=== PATIENT | female | born 1990 | race Caucasian/White ===

== ENCOUNTER 2020-07-18 18:35 | Emergency (ER) | payer BC, SELFPAY ==
[2020-07-18 19:33] VITALS: BP 141/73; PULSE 97; RESP 14; TEMP 37.1; O2SAT 98; BMI 38.4
--- NOTE | 2020-07-18 19:36 | HMH.EDUTC ---
[facility] [place] Clinical Impression: COVID-19 virus RNA test result unknown Disposition: Home, Self-Care Condition on Discharge: Good Instructions: Preventing the Spread of Coronavirus Discharge Instructions Additional Instructions: isolate until test known to be neg Referrals: Shira Gaviria [Primary Care Provider] - Forms: Work/School Release Time of Disposition: 19:52 Medical Decision Making - Ankur Inquiry Pt receiving controlled substance: No Vital Signs: 07/18/20 19:33 Temperature 98.7 F Temperature Source Oral Pulse Rate [Right Brachial] 97 H Respiratory Rate 14 Blood Pressure [Right Arm] 141/73 H Blood Pressure Mean [Right Arm] 95 Blood Pressure Source [Right Arm] Automatic Cuff Blood Pressure Position [Right Arm] Sitting 02 Sat by Pulse Oximetry 98 Oxygen Delivery Method Room Air [facility] [place] HPI - General Chief complaint: Urgent Treatment Center Stated complaint: COVID Test Time Seen by Provider: 07/18/20 19:36 Mode of Arrival: Ambulatory Source of Information: Patient Limitations: No Limitations Description of Symptoms (Recalled from Triage Doc. by RN): PATIENT REQUESTING COVID TEST HEENT Symptoms (Recalled from RN notes): No Resp Symptoms (Recalled from RN notes): No Skin Symptoms (Recalled from RN notes): No MS Symptoms (Recalled from RN notes): No Functional Status (Recalled from RN notes): WNL - History of Present Illness Provider Complaint: 30 yr old female presents for covid testing. pt denies symptoms but was tested today so her work wanted her tested - Related Data Previous Rx's Medication Instructions Recorded Benzonatate [Tessalon Perle 100mg 100 mg PO TID #30 cap 04/07/19 Cap] Oseltamivir Phosphate [Tamiflu 75 mg PO BID #10 cap 04/07/19 75mg Capsule] predniSONE [Prednisone 20mg 20 mg PO BID #10 tab 04/07/19 Tab] Allergies Allergy/AdvReac Type Severity Reaction Status Date / Time No Known Allergies Allergy Verified 04/07/19 12:38 - Worker's Comp Is this a Worker's Comp case?: No [facility] [facility] History - Hepatitis A Screen Drug use history?: No High risk sexual behaviors?: No History of sexually transmitted infection?: No Currently employed?: No Childcare worker?: No Do you have indoor plumbing?: Yes Do you have electricity?: Yes Attestation statement:: This patient has been screened for Hepatitis A risk factors. I have reviewed the patient's past medical history: Yes Medical History: Reports:: Cancer (thyroid) Denies:: Diabetes Mellitus Type 1 - Social History Alcohol Intake: never Occupational Status: other ROS Obtained: Yes Systems reviewed as appropriate & no additional complaints - Constitutional Constitutional: Reports system reviewed and no additional complaints, except as docu - Eyes Eyes: Reports system reviewed and no additional complaints, except as docu - ENT Ears, Nose, Mouth, and Throat: Reports system reviewed and no additional complaints, except as docu - Cardiovascular Cardiovascular: Reports system reviewed and no additional complaints, except as docu - Respiratory Respiratory: Yes system reviewed and no additional complaints, except as docu - Gastrointestinal Gastrointestingal: Reports: system reviewed and no additional complaints, except as docu - Genitourinary Female Genitourinary: Reports system reviewed and no additional complaints, except as docu - Musculoskeletal Musculoskeletal: Reports system reviewed and no additional complaints, except as docu - Integumentary/Breasts Skin/Breast: Reports system reviewed and no additional complaints, except as docu, Denies new lesions - Neurologic Neurologic: Reports system reviewed and no additional complaints, except as docu - Endocrine Endocrine: Reports system reviewed and no additional complaints, except as docu - Hematologic/Lymphatic Henatologic/Lymphatic: Reports system reviewed and no additional complaints, except as docu - Allergic/Immunol
[2020-07-18 19:58] VITALS: BP 141/73; PULSE 97; RESP 14; TEMP 37.1; O2SAT 98
[2020-07-20 12:52] LABS: Covid-19 Nasal PCR Sendout Lex Not Detected
== END 2020-07-18 20:00 | disposition home or self-care (01) ==
PROVIDERS: Emergency Provider Nurse Practitioner Family; PCP Pediatrics
DX: Z20.828 Contact with and (suspected) exposure to other viral communicable diseases (principal); Z85.850 Personal history of malignant neoplasm of thyroid
CPT/HCPCS: 99201; U0004

== ENCOUNTER 2021-10-23 01:53 | Emergency (ER) | payer BC, OTHER, SELFPAY ==
[2021-10-23 01:54] VITALS: BP 138/97; PULSE 107; RESP 18; TEMP 36.6; O2SAT 97; BMI 36.6
[2021-10-23 03:23] VITALS: BP 106/89; PULSE 87
[2021-10-23 03:23] LABS: Basophils # 0.1 K/mm3 (0-0.2); Basophils % 1.7 % (0.1-2.0); Eosinophils # 0.1 K/mm3 (0.0-0.4); Eosinophils % 1.4 % (0.1-12.0); Hematocrit 44.5 % (37.0-47.0); Lymphocytes # 1.4 K/mm3 (0.7-4.5); Lymphocytes % 23.8 % (10-50); Mean Corpuscular HGB Conc 33.6 g/dL (31.8-35.4); Mean Corpuscular Hemoglobin 32.7 pg (27.0-31.2); Mean Corpuscular Volume 97.2 fl (81-99); Mean Platelet Volume 8.2 fl (7.4-10.4); Monocytes # 0.4 K/mm3 (0.1-1.0); Neutrophils # 3.9 K/mm3 (1.8-7.8); Platelet Count 232 K/mm3 (142-424); Red Blood Count 4.58 M/mm3 (4.20-5.40); White Blood Count 5.8 K/mm3 (4.8-10.8)
--- NOTE | 2021-10-23 03:24 | PC.NURSE ---
PT AWARE OF NEED FOR STOOL SAMPLE. BLANKET PROVIDED. EXPECTED WAIT TIMES EXPLAINED TO PATIENT AND PATIENT VERBALIZED UNDERSTANDING.
[2021-10-23 03:29] LABS: Chloride 100 mmol/L (98-107); Sodium 136 mmol/L (136-145)
[2021-10-23 03:30] VITALS: BP 116/74; PULSE 78
[2021-10-23 03:31] LABS: Alanine Aminotransferase 62 U/L (12-78); Aspartate Amino Transferase 43 U/L (14-36); Blood Urea Nitrogen 6 mg/dl (7-17); Creatinine Clearance Estimated 146 mL/min (50-200); Estimated Glomerular Filt Rate 84 ml/min (>60); GFR (African American) 101 ML/MIN (>60); Potassium 2.9 mmoL/L (3.5-5.1)
[2021-10-23 03:32] LABS: Albumin Level 4.8 g/dl (3.5-5.0); Albumin/Globulin Ratio 1.5 (1.1-1.8); Alkaline Phosphatase 66 U/L (38-126); Anion Gap 15.9 mEq/L (5-15); Bilirubin,Total 0.6 mg/dl (0.2-1.3); Carbon Dioxide 23 mmol/L (22.0-30.0); Globulin 3.3 g/dL (1.3-3.2); Glucose 94 mg/dl (74-100); Lipase 112 U/L (23-300); Total Protein,Serum 8.1 g/dl (6.3-8.2)
[2021-10-23 04:05] VITALS: BP 128/81; PULSE 80
[2021-10-23 04:30] VITALS: BP 119/71; PULSE 78; O2SAT 100
--- NOTE | 2021-10-23 04:54 | PC.NURSE ---
PT AWARE OF EXPECTED WAIT TIMES. NO ACUTE DISTRESS NOTED.
--- NOTE | 2021-10-23 05:22 | HMH.EDABDPAI ---
ED Disposition Clinical Impression: Hypocalcemia, Viral gastroenteritis, Hypokalemia Disposition: Home, Self-Care Condition on Discharge: Good Instructions: Viral Gastroenteritis, Hypocalcemia Additional Instructions: Please follow up with your primary care physician in 2-3 days for further management. Please obtain repeat calcium and potassium labs in the next week. Please take the zofran as prescribed. Please drink plenty of water and eat 3 balanced meals. Please return if you are unable to tolerate po intake, vomiting despite medical management or any other concerns. Prescriptions: Ondansetron [Zofran 4mg ODT] 4 mg PO TIDP PRN #30 tab PRN Reason: Nausea Transmission Status: Received by [id number] Referrals: Shira Gaviria [Primary Care Provider] - - Critical Care Critical Care Time: No Attestation: On 10/23/21, the high probability of a clinically significant, sudden or life threatening deterioration of the following system(s) required my full and direct attention, intervention and personal management. The time I documented below is in addition to time spent performing reported procedures but includes the following listed in this critical care notation. Medical Decision Making - Medical Records Medical records reviewed: Yes: I reviewed the patient's medical records. - Ankur Inquiry Pt receiving controlled substance: No Vital Signs: 10/23/21 01:54 10/23/21 03:23 10/23/21 03:30 Temperature 97.9 F Temperature Source Oral Pulse Rate 87 78 Pulse Rate [Left Radial] 107 H Respiratory Rate 18 Blood Pressure 106/89 L 116/74 Blood Pressure [Right Arm] 138/97 H Blood Pressure Mean 94 86 Blood Pressure Mean [Right Arm] 110 Blood Pressure Source [Right Arm] Automatic Cuff Blood Pressure Position [Right Arm] Sitting 02 Sat by Pulse Oximetry 97 Oxygen Delivery Method Room Air 10/23/21 04:05 10/23/21 04:30 10/23/21 06:04 Temperature 98.1 F Temperature Source Pulse Rate 80 78 78 Pulse Rate [Left Radial] Respiratory Rate 18 Blood Pressure 128/81 119/71 121/73 Blood Pressure [Right Arm] Blood Pressure Mean 89 83 Blood Pressure Mean [Right Arm] Blood Pressure Source [Right Arm] Blood Pressure Position [Right Arm] 02 Sat by Pulse Oximetry 100 Oxygen Delivery Method Room Air - Lab Data Lab results reviewed: Yes: I reviewed the patient's lab results. Lab Results 10/23/21 03:13: WBC 5.8, RBC 4.58, Hgb 15.0, Hct 44.5, MCV 97.2, MCH 32.7 H, MCHC 33.6, RDW 14.0, Plt Count 232, MPV 8.2, Neut % (Auto) 67.0, Lymph % (Auto) 23.8, Crawford % (Auto) 6.0, Eos % (Auto) 1.4, Baso % (Auto) 1.7, Neut # (Auto) 3.9, Lymph # (Auto) 1.4, Crawford # (Auto) 0.4, Eos # (Auto) 0.1, Baso # (Auto) 0.1 10/23/21 03:13: Sodium 136, Potassium 2.9 L*, Chloride 100, Carbon Dioxide 23, Anion Gap 15.9 H, BUN 6 L, Creatinine 0.80, Estimated Creat Clear 146, Estimated GFR 84, Est GFR ( Amer) 101, Glucose 94, Calcium 7.0 L, Total Bilirubin 0.6, AST 43 H, ALT 62, Alkaline Phosphatase 66, Total Protein 8.1, Albumin 4.8, Globulin 3.3 H, Albumin/Globulin Ratio 1.5, Lipase 112 Result diagrams: 10/23/21 03:13 10/23/21 03:13 Orders (Tests/Meds): ED MEDICATIONS Discontinued Medications Generic Name Dose Route Start Last Admin Trade Name Freq PRN Reason Stop Dose Admin Lactated Ringer's 1,000 mls @ 999 mls/hr 10/23/21 03:15 10/23/21 03:20 Lactated Ringer's 1000 Ml Bag IV 10/23/21 04:15 999 mls/hr .Q1H1M RAVEN Administration Calcium Gluconate 1,000 mg/ 35 mls @ 100 mls/hr 10/23/21 04:12 10/23/21 04:43 Sodium Chloride IV 10/23/21 04:32 100 mls/hr ONCE ONE Administration Ondansetron HCl 4 mg 10/23/21 03:09 10/23/21 03:20 Ondansetron 4mg/2ml Vial IV 10/23/21 03:10 4 mg ONCE ONE Administration Potassium Chloride 40 meq 10/23/21 03:33 10/23/21 03:38 Potassium Chloride 20meq Tab PO 10/23/21 03:34 40 meq ONCE ONE Administration Med
[2021-10-23 06:04] VITALS: BP 121/73; PULSE 78; RESP 18; TEMP 36.7; O2SAT 98
== END 2021-10-23 06:07 | disposition home or self-care (01) ==
PROVIDERS: Emergency Provider Student in an Organized Health Care Education/Training Program; PCP Pediatrics
DX: E83.51 Hypocalcemia (principal); K52.9 Noninfective gastroenteritis and colitis, unspecified; E87.6 Hypokalemia; Z85.850 Personal history of malignant neoplasm of thyroid
CPT/HCPCS: 80053; 83690; 85025; 96365; 96366; 96375; 99284; J2405

== ENCOUNTER 2022-03-23 21:04 | Emergency (ER) | payer BC, OTHER, SELFPAY ==
[2022-03-23 21:06] VITALS: BP 148/83; PULSE 115; RESP 16; TEMP 36.9; O2SAT 98; BMI 38.0
--- NOTE | 2022-03-23 21:52 | PC.NURSE ---
Rechecked pt condition. Pt had no complaints at this time. Advised her ride was on the way.
[2022-03-23 22:01] VITALS: BP 148/83; PULSE 104; O2SAT 97
[2022-03-23 22:33] LABS: Basophils # 0.1 K/mm3 (0-0.2); Eosinophils # 0.1 K/mm3 (0.0-0.4); Eosinophils % 1.5 % (0.1-12.0); Hematocrit 41.6 % (37.0-47.0); Hemoglobin 13.4 g/dL (12.2-16.2); Lymphocytes # 2.2 K/mm3 (0.7-4.5); Lymphocytes % 23.8 % (10-50); Mean Corpuscular HGB Conc 32.1 g/dL (31.8-35.4); Mean Corpuscular Hemoglobin 31.8 pg (27.0-31.2); Mean Corpuscular Volume 99.1 fl (81-99); Mean Platelet Volume 8.1 fl (7.4-10.4); Monocytes # 0.5 K/mm3 (0.1-1.0); Monocytes % 5.1 % (1.7-9.3); Neutrophils # 6.4 K/mm3 (1.8-7.8); Neutrophils % 68.7 % (37.0-80.0); Platelet Count 320 K/mm3 (142-424); Red Cell Distribution Width 13.9 % (11.5-17.5); White Blood Count 9.3 K/mm3 (4.8-10.8)
[2022-03-23 22:43] LABS: Alanine Aminotransferase 35 U/L (12-78); Albumin Level 4.3 g/dl (3.5-5.0); Albumin/Globulin Ratio 1.4 (1.1-1.8); Alkaline Phosphatase 94 U/L (38-126); Anion Gap 10.8 mEq/L (5-15); Aspartate Amino Transferase 30 U/L (14-36); Bilirubin,Total 0.3 mg/dl (0.2-1.3); Blood Urea Nitrogen 14 mg/dl (7-17); Calcium 7.8 mg/dl (8.4-10.2); Carbon Dioxide 26 mmol/L (22.0-30.0); Chloride 107 mmol/L (98-107); Creatinine Clearance Estimated 135 mL/min (50-200); Estimated Glomerular Filt Rate 73 ml/min (>60); GFR (African American) 88 ML/MIN (>60); Glucose 129 mg/dl (74-100); Potassium 3.8 mmoL/L (3.5-5.1); Sodium 140 mmol/L (136-145); Total Protein,Serum 7.3 g/dl (6.3-8.2)
--- NOTE | 2022-03-23 22:46 | PC.NURSE ---
Rounded on pt. Pt given warm blanket and bottle of water per request. No other needs or complaints voiced.
[2022-03-23 22:48] LABS: C-Reactive Protein 8.2 mg/L (0-4)
[2022-03-23 23:00] VITALS: BP 145/95; PULSE 105; O2SAT 99
[2022-03-23 23:02] LABS: Procalcitonin 0.061 ng/mL (0.0-2.0)
[2022-03-23 23:17] LABS: Erythrocyte Sedimentation Rate 17 mm/hr (0-20)
[2022-03-23 23:30] VITALS: BP 149/94; PULSE 103; O2SAT 97
--- NOTE | 2022-03-23 23:54 | HMH.EDEXTP ---
ED Disposition Clinical Impression: Pain of left calf, Elevated d-dimer Disposition: Home, Self-Care Condition on Discharge: Good Instructions: DI for Deep Vein Thrombosis Additional Instructions: call pcp for follow up and obtain venous doppler in am Referrals: Shira Gaviria [Primary Care Provider] - - Critical Care Critical Care Time: No Attestation: On 03/23/22, the high probability of a clinically significant, sudden or life threatening deterioration of the following system(s) required my full and direct attention, intervention and personal management. The time I documented below is in addition to time spent performing reported procedures but includes the following listed in this critical care notation. Medical Decision Making - Medical Records Medical records reviewed: Yes: I reviewed the patient's medical records. - Ankur Inquiry Pt receiving controlled substance: No Vital Signs: 03/23/22 21:06 03/23/22 22:01 03/23/22 23:00 Temperature 98.5 F Temperature Source Oral Pulse Rate 104 H 105 H Pulse Rate [Right] 115 H Respiratory Rate 16 Blood Pressure 148/83 H 145/95 H Blood Pressure [Right Arm] 148/83 H Blood Pressure Mean [Right Arm] 104 02 Sat by Pulse Oximetry 98 97 99 Oxygen Delivery Method Room Air Room Air - Lab Data Lab results reviewed: Yes: I reviewed the patient's lab results. Lab Results 03/23/22 22:25: WBC 9.3, RBC 4.20, Hgb 13.4, Hct 41.6, MCV 99.1 H, MCH 31.8 H, MCHC 32.1, RDW 13.9, Plt Count 320, MPV 8.1, Neut % (Auto) 68.7, Lymph % (Auto) 23.8, Loíza % (Auto) 5.1, Eos % (Auto) 1.5, Baso % (Auto) 1.0, Neut # (Auto) 6.4, Lymph # (Auto) 2.2, Loí[place] # (Auto) 0.5, Eos # (Auto) 0.1, Baso # (Auto) 0.1, ESR 17 03/23/22 22:25: Sodium 140, Potassium 3.8, Chloride 107, Carbon Dioxide 26, Anion Gap 10.8, BUN 14, Creatinine 0.90, Estimated Creat Clear 135, Estimated GFR 73, Est GFR ( Amer) 88, Glucose 129 H, Calcium 7.8 L, Total Bilirubin 0.3, AST 30, ALT 35, Alkaline Phosphatase 94, C-Reactive Protein 8.2 H, Total Protein 7.3, Albumin 4.3, Globulin 3.0, Albumin/Globulin Ratio 1.4, Procalcitonin 0.061 03/23/22 22:25: D-Dimer 0.72 H Result diagrams: 03/23/22 22:25 03/23/22 22:25 Orders (Tests/Meds): ORDERS Category Date Time Status T4 (Thyroxine) Stat Lab 03/23/22 22:25 Received Thyroid Stimulating Hormone Stat Lab 03/23/22 22:25 Received Medical Decision Narrative: has no def pain on exam but has elevated d - dimer Extremity Problem HPI - General Chief complaint: Extremity Injury, Lower Stated complaint: left knee pain,end of fingers tingling Time Seen by Provider: 03/23/22 23:54 Mode of Arrival: Ambulatory Source of Information: Patient, Medical Record Limitations: No Limitations Description of Symptoms (Recalled from ER Triage Doc. by RN): pt c/o lt knee and calf burning sensation with bilateral fingertips that started yesterday. pt denies any trauma or accident. pt states she has problems with her calcium. - History of Present Illness HPI Narrative: pt with lt lower pain w/o rash or trauma - hx of thyroid cancer - has tingling to finger tips and perioral MD Complaint: extremity pain Onset (ago): day(s) Consistency: intermittent Location: lower extremity Quality: aching Radiation: none Associated symptoms: denies other symptoms - Related Data Home Medications Medication Instructions Recorded Confirmed Levothyroxine Sodium 1 tab PO DAILY 10/23/21 10/23/21 [Levothyroxine 175mcg (0.175mg) Tab] calcitrioL [Calcitriol] 0.5 mcg PO DAILY 10/23/21 10/23/21 hydrOXYzine HCL [Hydroxyzine HCl] 25 mg PO NEEDED PRN 10/23/21 10/23/21 Previous Rx's Medication Instructions Recorded Ondansetron [Zofran 4mg ODT] 4 mg PO TIDP PRN #30 tab 10/23/21 Allergies Allergy/AdvReac Type Severity Reaction Status Date / Time No Known Allergies Allergy Verified 04/07/19 12:38 [facility] History - Hepatitis A Screen Attestation stat
--- NOTE | 2022-03-24 | PC.NURSE ---
MD at BS speaking with pt about results and POC.
[2022-03-24 00:12] LABS: D-Dimer 0.72 ug/mL (0.0-0.5)
--- NOTE | 2022-03-24 00:24 | PC.NURSE ---
checked on pt she was utilizing her phone. no complaints at this time
[2022-03-24 00:26] LABS: T4 (Thyroxine) 17.3 ug/dl (5.53-11.0)
[2022-03-24 00:30] VITALS: BP 145/87; PULSE 100; O2SAT 98
[2022-03-24 00:40] LABS: Thyroid Stimulating Hormone 1.11 uIU/mL (0.465-4.68)
[2022-03-24 00:49] VITALS: BP 139/87; PULSE 100; RESP 16; TEMP 36.9; O2SAT 99
== END 2022-03-24 00:56 | disposition home or self-care (01) ==
PROVIDERS: Emergency Provider Emergency Medicine; PCP Pediatrics
DX: M79.662 Pain in left lower leg (principal); R79.89 Other specified abnormal findings of blood chemistry; R20.0 Anesthesia of skin; Z85.850 Personal history of malignant neoplasm of thyroid
CPT/HCPCS: 80053; 84145; 84436; 84443; 85025; 85378; 85651; 86140; 96372; 99283

== ENCOUNTER → 2022-03-24 13:12 | Outpatient (CLI) | payer BC, OTHER, SELFPAY ==
--- NOTE | 2022-03-24 13:16 | CA_ITS ---
FINAL REPORT TECHNIQUE: Color Doppler, duplex Doppler and compression sonography of the left lower extremity deep venous systems was performed. CLINICAL HISTORY: BURNING PAIN PROXIMAL CALF X SEVERAL DAYS,+ D-DIMER FINDINGS: There is no evidence of deep venous thrombosis from the level of the groin to the calf. The veins are patent and compressible. IMPRESSION: No evidence of deep venous thrombosis left lower extremity. Reviewed, Interpreted and Dictated by Eddie Mcknight III, MD Transcribed by Beverly Jean Authenticated and [facility]
== END ==
PROVIDERS: PCP Pediatrics; Visit Provider Emergency Medicine
DX: M79.662 Pain in left lower leg (principal); R79.1 Abnormal coagulation profile
CPT/HCPCS: 93971

== ENCOUNTER 2023-07-10 12:22 | Emergency (ER) | payer BC, OTHER, SELFPAY ==
--- NOTE | 2023-07-10 12:45 | ED_ITS ---
Discharge Plan Disposition Patient Disposition: Home, Self-Care Condition: Good Prescriptions Prescriptions: No Action hydroxyzine HCl 25 MG tablet 25 mg PO NEEDED PRN (Reason: Anxiety) levothyroxine 175 MCG tablet 1 tab PO DAILY calcitriol 0.5 MCG capsule 0.5 mcg PO DAILY ondansetron 4 MG tablet,disintegrating 4 mg PO TIDP PRN (Reason: Nausea) Qty: 30 0RF Referrals Follow up/Referrals: Ramesh Sosa MD [Primary Care Provider] - See instructions Clinical Impressions Clinical Impression: Tuberculin skin test encounter Discharge ED Provider: Baldo Belcher [facility] [place] General Stated complaint: TB test Time Seen by Provider: 07/10/23 12:45 Related Data Home Medications Medication Instructions Recorded Confirmed calcitriol 0.5 mcg capsule 0.5 mcg PO DAILY Supplement 10/23/21 10/23/21 hydroxyzine HCl 25 mg tablet 25 mg PO NEEDED PRN Anxiety 10/23/21 10/23/21 levothyroxine 175 mcg tablet 1 tab PO DAILY HYPOTHYROIDISM 10/23/21 10/23/21 Previous Rx's Medication Instructions Recorded ondansetron 4 mg disintegrating 4 mg PO TIDP PRN Nausea #30 tabs 10/23/21 tablet Allergies Allergy/AdvReac Type Severity Reaction Status Date / Time Sulfa (Sulfonamide Allergy Verified 07/10/23 12:50 Antibiotics) sulfamethoxazole Allergy Verified 07/10/23 12:57 [From Bactrim] trimethoprim [From Bactrim] Allergy Verified 07/10/23 12:57 [facility] Disclaimer: The information contained in this section may have been updated after the patient was seen, as this information can be updated by other users. Social History alcohol intake: never current occupational status: other Travel in the last 8 weeks: None
[2023-07-10 12:49] VITALS: BP 138/77; PULSE 88; RESP 18; TEMP 36.9; O2SAT 96; BMI 38.4
[2023-07-10 12:58] VITALS: BP 138/77; PULSE 88; RESP 18; TEMP 36.9; O2SAT 96
== END 2023-07-10 12:58 | disposition home or self-care (01) ==
LOC: UTC 12:28
PROVIDERS: Emergency Provider Nurse Practitioner Family; PCP Pediatrics
DX: Z11.1 Encounter for screening for respiratory tuberculosis (principal)
CPT/HCPCS: 86580; 99212; G0463

== ENCOUNTER 2024-01-24 08:08 | Emergency (ER) | payer BC, SELFPAY ==
[2024-01-24 08:40] VITALS: BP 127/71; PULSE 62; RESP 20; TEMP 36.7; O2SAT 97; BMI 40.2
--- NOTE | 2024-01-24 09:11 | EXP.UTC ---
Discharge Plan Disposition Patient Disposition: Home, Self-Care Condition: Good Prescriptions Prescriptions: New [id number]-vigfkirhy-GJ [Bromfed DM] 2-30-10 mg/5 mL syrup 10 ml PO Q4-6H PRN (Reason: sinus symptoms/cough) Qty: 200 0RF No Action metformin 500 mg tablet 500 mg PO BID Patient Comments: TAKE 1 TABLET BY MOUTH TWICE DAILY FOR 90 DAYS calcitriol 0.5 mcg capsule 1 mcg PO DAILY Patient Comments: TAKE 2 CAPSULES BY MOUTH ONCE DAILY levothyroxine 200 mcg tablet 200 mcg PO DAILY Patient Comments: TAKE 1 TABLET BY MOUTH ONCE DAILY escitalopram oxalate 10 mg tablet 10 mg PO DAILY Patient Comments: TAKE 1 TABLET BY MOUTH ONCE DAILY FOR 90 DAYS . APPOINTMENT REQUIRED FOR FUTURE REFILLS Referrals Follow up/Referrals: Ramesh Sosa MD [Primary Care Provider] - See instructions Clinical Impressions Clinical Impression: Acute upper respiratory infection Instructions Patient Instructions: DI for Viral Upper Respiratory Infection -- Adult Discharge ED Provider: [facility] General Stated complaint: runny nose, cough, sinus pressure, ear pain Mode of Arrival: Ambulatory Source of Information: Patient Limitations: No Limitations Time Seen by Provider: 01/24/24 09:11 Description of Symptoms (Recalled from Triage Doc. by RN): PATIENT C/O COUGH, SINUS PRESSURE, EAR PAIN, RUNNY NOSE AND BODY ACHES X 5 DAYS HEENT Symptoms (Recalled from RN notes): Yes Resp Symptoms (Recalled from RN notes): Yes Skin Symptoms (Recalled from RN notes): No MS Symptoms (Recalled from RN notes): No Functional Status (Recalled from RN notes): WNL History of Present Illness Provider Complaint: Pt reports that she has had cough, sinus pressure, ear pain, and runny nose for the last 5 days. She denies taking anything for her symptoms. Son has similar symptoms. Related Data Home Medications Medication Instructions Recorded Confirmed calcitriol 0.5 mcg capsule 1 mcg PO DAILY 01/24/24 01/24/24 escitalopram oxalate 10 mg tablet 10 mg PO DAILY 01/24/24 01/24/24 levothyroxine 200 mcg tablet 200 mcg PO DAILY 01/24/24 01/24/24 metformin 500 mg tablet 500 mg PO BID 01/24/24 01/24/24 Previous Rx's Medication Instructions Recorded sbewkrhwifyybrg-hwfubzrpbcyuyyc-GP 10 ml PO Q4-6H PRN sinus 01/24/24 2 mg-30 mg-10 mg/5 mL oral syrup symptoms/cough #200 mL (Bromfed DM) Allergies Allergy/AdvReac Type Severity Reaction Status Date / Time Sulfa (Sulfonamide Allergy Verified 07/10/23 12:50 Antibiotics) sulfamethoxazole Allergy Verified 07/10/23 12:57 [From Bactrim] trimethoprim [From Bactrim] Allergy Verified 07/10/23 12:57 Worker's Comp Is this a Worker's Comp case?: No PFSH PFS Disclaimer: The information contained in this section may have been updated after the patient was seen, as this information can be updated by other users. Medical History (Updated 01/24/24 @ 09:23 by Chaparrita Tobias APRN) Thyroid disease Social History Smoking Status: Never smoker alcohol intake: never current occupational status: other Travel in the last 8 weeks: None ROS Obtained: Yes All systems reviewed & no additional complaints except as documented Constitutional Constitutional: Reports system reviewed and no additional complaints, except as documented and Reports body ache Eyes Eyes: Reports system reviewed and no additional complaints, except as documented ENT Ears, Nose, Mouth, and Throat: Reports system reviewed and no additional complaints, except as documented, Reports otalgia, Reports nasal discharge, Reports sinus pressure and Reports sore throat Cardiovascular Cardiovascular: Reports system reviewed and no additional complaints, except as documented Respiratory Respiratory: Reports system reviewed and no additional complaints, except as documented and Reports non-productive cough Gastrointestinal Gastrointestingal: Reports system reviewed and no additional complaints, except as documented Genitourinary Female Genitourinary: Reports system reviewed and no additional complaints, except as documented Musculoskeletal Musculoskeletal: Reports system reviewed and no additional complaints, except as documented Integumentary/Breasts Skin/Breast: Reports system reviewed and no additional complaints, except as documented Neurologic Neurologic: Reports system reviewed and no additional complaints, except as documented Endocrine Endocrine: Reports system reviewed and no additional complaints, except as documented Hematologic/Lymphatic Henatologic/Lymphatic: Reports system reviewed and no additional complaints, except as documented Allergic/Immunologic Allergic/Immunologic: Reports system reviewed and no additional complaints, except as documented Physical Exam General General appearance: alert Comment: ill appearing Head Head exam: atraumatic and normocephalic Eye Eye exam: Present normal appearance Expanded ENT Exam External ear exam: Present normal external inspection TM/Canal exam: Bilateral TM: effusion (clear bubbles) Nose exam: Present sinus tenderness (maxillary) Nasal speculum exam: Bilateral: other (clear drainage) Mouth exam: Present normal external inspection Teeth exam: Present normal inspection Throat exam: Present normal inspection Neck Neck exam: Present normal inspection; Absent lymphadenopathy Chest Chest inspection: Present normal inspection and symmetric chest wall rise Respiratory Respiratory exam: Present normal lung sounds bilaterally Cardiovascular Cardiovascular exam: Present regular rate, normal rhythm and normal heart sounds Abdominal Exam Abdominal exam: Present normal bowel sounds Extremities Exam Extremities exam: Present normal inspection Back Exam Back exam: Present normal inspection Neurological Exam Neurological exam: Present alert and oriented X3 Psychiatric Psychiatric exam: Present normal affect and normal mood Skin Skin exam: Present warm, dry and intact Lymphatic Lymphatic Findings: no adenopathy Medical Decision Making Ankur Inquiry Pt receiving controlled substance: No Ankur was queried for this patient: No Vital Signs: 01/24/24 08:40 Temperature 98.1 F Temperature Source Oral Pulse Rate [Left Brachial] 62 Respiratory Rate 20 Blood Pressure [Left Arm] 127/71 Blood Pressure Mean [Left Arm] 89 Blood Pressure Source [Left Arm] Automatic Cuff Blood Pressure Position [Left Arm] Sitting 02 Sat by Pulse Oximetry 97 Oxygen Delivery Method Room Air
[2024-01-24 09:32] VITALS: BP 127/71; PULSE 62; RESP 20; TEMP 36.7; O2SAT 97
== END 2024-01-24 09:37 | disposition home or self-care (01) ==
PROVIDERS: Emergency Provider Nurse Practitioner Family; PCP Pediatrics
DX: R05.9 Cough, unspecified (principal); J06.9 Acute upper respiratory infection, unspecified; H92.03 Otalgia, bilateral; B34.9 Viral infection, unspecified
CPT/HCPCS: 99212; 99214; G0463

== ENCOUNTER 2024-02-17 08:07 | Emergency (ER) | payer BC, SELFPAY ==
[2024-02-17 08:15] VITALS: BP 124/78; PULSE 64; RESP 18; TEMP 36.7; O2SAT 97; BMI 40.8
--- NOTE | 2024-02-17 08:19 | EXP.UTC ---
Discharge Plan Disposition Patient Disposition: Home, Self-Care Condition: Good Prescriptions Prescriptions: New amoxicillin 875 mg tablet 875 mg PO Q12H Qty: 20 0RF methylprednisolone 4 mg Tablets,Dose Pack 4 mg PO DIRECTED 6 Days Qty: 21 0RF Rx Instructions: Take 1 pack as directed for 6 days [id number]-lairyzflc-AM [Bromfed DM] 2-30-10 mg/5 mL Syrup 5 ml PO Q6H PRN (Reason: Cough) Qty: 240 0RF No Action metformin 500 mg tablet 500 mg PO BID Patient Comments: TAKE 1 TABLET BY MOUTH TWICE DAILY FOR 90 DAYS calcitriol 0.5 mcg capsule 1 mcg PO DAILY Patient Comments: TAKE 2 CAPSULES BY MOUTH ONCE DAILY levothyroxine 200 mcg tablet 200 mcg PO DAILY Patient Comments: TAKE 1 TABLET BY MOUTH ONCE DAILY escitalopram oxalate 10 mg tablet 10 mg PO DAILY Patient Comments: TAKE 1 TABLET BY MOUTH ONCE DAILY FOR 90 DAYS . APPOINTMENT REQUIRED FOR FUTURE REFILLS hydroxyzine pamoate 25 mg capsule 25 mg PO HSP PRN (Reason: Insomnia) Patient Comments: TAKE 1 CAPSULE BY MOUTH ONCE DAILY AT BEDTIME Referrals Follow up/Referrals: Ramesh Sosa MD [Primary Care Provider] - See instructions Activity Restrictions/Add. Instructions Additional Instructions/Restrictions: Drink plenty of fluids. Take tylenol or ibuprofen for pain or fever. Take the medications as directed. Follow up with your regular doctor. GO TO THE ER FOR ANY WORSENING SYMPTOMS Clinical Impressions Clinical Impression: Otitis media Stand Alone Forms Stand Alone Forms: Work/School Release Instructions Patient Instructions: Middle Ear Infection, Methylprednisolone, Amoxicillin Discharge ED Provider: Baldo Belcher [facility] General Stated complaint: Right ear pain, muffled sound cough Time Seen by Provider: 02/17/24 08:19 History of Present Illness Provider Complaint: She states that for the past 3 days she has had worsening ear pain and sinus congestion. Related Data Home Medications Medication Instructions Recorded Confirmed calcitriol 0.5 mcg capsule 1 mcg PO DAILY 01/24/24 02/17/24 escitalopram oxalate 10 mg tablet 10 mg PO DAILY 01/24/24 02/17/24 levothyroxine 200 mcg tablet 200 mcg PO DAILY 01/24/24 02/17/24 metformin 500 mg tablet 500 mg PO BID 01/24/24 02/17/24 hydroxyzine pamoate 25 mg capsule 25 mg PO HSP PRN Insomnia 02/17/24 02/17/24 Previous Rx's Medication Instructions Recorded amoxicillin 875 mg tablet 875 mg PO Q12H #20 tabs 02/17/24 raypprxcykffsnf-tnwggetiewgocbd-XB 5 ml PO Q6H PRN Cough #240 mL 02/17/24 2 mg-30 mg-10 mg/5 mL oral syrup (Bromfed DM) methylprednisolone 4 mg tablets in 4 mg PO DIRECTED 6 days #21 tabs 02/17/24 a dose pack Allergies Allergy/AdvReac Type Severity Reaction Status Date / Time Sulfa (Sulfonamide Allergy Verified 07/10/23 12:50 Antibiotics) sulfamethoxazole Allergy Verified 07/10/23 12:57 [From Bactrim] trimethoprim [From Bactrim] Allergy Verified 07/10/23 12:57 PFSH [facility] Disclaimer: The information contained in this section may have been updated after the patient was seen, as this information can be updated by other users. Medical History (Updated 02/17/24 @ 08:38 by Baldo Belcher APRN) Cancer Depression Anxiety Thyroid disease Surgical History (Updated 02/17/24 @ 08:24 by Jennifer Pritchard RN) History of section History of thyroidectomy Social History (Updated 01/24/24 @ 09:27 by Chaparrita Tobias APRN) Smoking Status: Never smoker alcohol intake: never current occupational status: other Travel in the last 8 weeks: None ROS Obtained: Yes All systems reviewed & no additional complaints except as documented Constitutional Constitutional: Denies chills, Reports fever(s) and Reports poor appetite Eyes Eyes: Denies eye discharge ENT Ears, Nose, Mouth, and Throat: Denies ear discharge, Reports otalgia, Denies hearing loss, Denies sinus pain and Reports sore throat Cardiovascular Cardiovascular: Denies chest pain and Denies dyspnea Respiratory Respiratory: Denies chest congestion, Reports cough and Denies dyspnea Gastrointestinal Gastrointestingal: Denies abdominal pain, diarrhea, nausea or vomiting Musculoskeletal Musculoskeletal: Denies arthralgias Integumentary/Breasts Skin/Breast: Denies rash Physical Exam General General appearance: alert and in no apparent distress Head Head exam: atraumatic, normocephalic and normal inspection Eye Eye exam: Present normal appearance; Absent PERRL or EOMI ENT ENT exam: Present mucous membranes moist and normal external ear exam Expanded ENT Exam TM/Canal exam: Bilateral TM: erythema, bulging and effusion Nose exam: Absent sinus tenderness Nasal speculum exam: Bilateral: normal Mouth exam: Present normal external inspection and other; Absent drooling Teeth exam: Present normal inspection Throat exam: Present tonsillar erythema and tonsillomegaly Neck Neck exam: Present normal inspection, full ROM and trachea midline; Absent tenderness, meningismus or lymphadenopathy Chest Chest inspection: Present normal inspection and symmetric chest wall rise; Absent tenderness Respiratory Respiratory exam: Present normal lung sounds bilaterally; Absent respiratory distress, wheezes or stridor Cardiovascular Cardiovascular exam: Present regular rate, normal rhythm and normal heart sounds; Absent tachycardia or irregular rhythm Abdominal Exam Abdominal exam: Present soft and normal bowel sounds; Absent distention, tenderness, guarding, rebound or rigidity Extremities Exam Extremities exam: Present normal inspection and normal capillary refill; Absent tenderness, joint swelling or calf tenderness Back Exam Back exam: Present normal inspection and full ROM; Absent tenderness, CVA tenderness (R) or CVA tenderness (L) Neurological Exam Neurological exam: Present alert, oriented X3, CN II-XII intact, normal gait and reflexes normal; Absent motor sensory deficit Psychiatric Psychiatric exam: Present normal affect and normal mood Skin Skin exam: Present warm, dry, intact and normal color Lymphatic Lymphatic Findings: no adenopathy Medical Decision Making Medical Records Medical records reviewed: No I reviewed the patient's medical records. Ankur Inquiry Pt receiving controlled substance: No
[2024-02-17 08:39] VITALS: BP 124/78; PULSE 64; RESP 18; TEMP 36.7; O2SAT 97
== END 2024-02-17 08:44 | disposition home or self-care (01) ==
PROVIDERS: Emergency Provider Nurse Practitioner Family; PCP Pediatrics
DX: H66.91 Otitis media, unspecified, right ear (principal); H92.01 Otalgia, right ear; R09.81 Nasal congestion
CPT/HCPCS: 99212; 99214; G0463

== ENCOUNTER 2024-04-02 17:40 | Emergency (ER) | payer BC, SELFPAY ==
[2024-04-02 18:10] VITALS: BP 142/78; PULSE 97; RESP 18; TEMP 36.9; O2SAT 100; BMI 40.2
--- NOTE | 2024-04-02 18:30 | EXP.UTC ---
Discharge Plan Disposition Patient Disposition: Home, Self-Care Condition: Good Prescriptions Prescriptions: New methylprednisolone [Medrol (Andrea)] 4 mg tablets,dose pack See Rx Instructions .Route .COMPLEX 6 Days Qty: 21 0RF Rx Instructions: taper pack; amoxicillin-pot clavulanate 875-125 mg Tablet 1 tab PO Q12H Qty: 20 0RF No Action metformin 500 mg tablet 500 mg PO BID Patient Comments: TAKE 1 TABLET BY MOUTH TWICE DAILY FOR 90 DAYS calcitriol 0.5 mcg capsule 1 mcg PO DAILY Patient Comments: TAKE 2 CAPSULES BY MOUTH ONCE DAILY levothyroxine 200 mcg tablet 200 mcg PO DAILY Patient Comments: TAKE 1 TABLET BY MOUTH ONCE DAILY escitalopram oxalate 10 mg tablet 10 mg PO DAILY Patient Comments: TAKE 1 TABLET BY MOUTH ONCE DAILY FOR 90 DAYS . APPOINTMENT REQUIRED FOR FUTURE REFILLS Referrals Follow up/Referrals: Ramesh Sosa MD [Primary Care Provider] - See instructions Activity Restrictions/Add. Instructions Additional Instructions/Restrictions: Start antibiotic today. Be sure to complete entire prescription even if feeling better Monitor temp. Tylenol every 4 hours as needed and / or ibuprofen every 6 hours as needed ( As long as your primary care physician has told you that it ok to take both. For fever/aches/pains ER if no less than 101 despite Tylenol or Motrin Humidifier/vaporizer or hot steamy shower *Start steroid today. Helps with inflammation therefore, cough and wheezing. Follow directions on the package. Reviewed side effects. Patient reports taking them before. Follow up IMMEDIATELY for new or worsening of symptoms OR no noticeable improvement over the next 48-72 hours. 911 immediately for any life threatening symptoms such as chest pain or difficulty breathing Clinical Impressions Clinical Impression: Sinusitis Instructions Patient Instructions: DI for Sinusitis, Sinusitis Print Language Print Language: Russian Discharge ED Provider: Debbie Llanes [facility] [place] General Stated complaint: cough, runny nose Mode of Arrival: Ambulatory Source of Information: Patient Limitations: No Limitations Time Seen by Provider: 04/02/24 18:30 Description of Symptoms (Recalled from Triage Doc. by RN): PATIENT C/O HEADACHE, RIGHT EAR PAIN, RUNNY NOSE, COUGH, WATERY/BURNING EYES, AND SINUS PRESSURE X 2 DAYS HEENT Symptoms (Recalled from RN notes): Yes Resp Symptoms (Recalled from RN notes): Yes Skin Symptoms (Recalled from RN notes): No MS Symptoms (Recalled from RN notes): No Functional Status (Recalled from RN notes): WNL History of Present Illness Provider Complaint: Patient states that she has been having sinus pain and pressure for about a week worse in the last couple of days and having pain and pressure in her right ear, headache cough and watery eyes States that she has continued to feel worse over the last few days and she is in clinicals and needs COVID test to return Related Data Home Medications ?Medication ?Instructions ?Recorded ?Confirmed calcitriol 0.5 mcg capsule 1 mcg PO DAILY 01/24/24 04/02/24 escitalopram oxalate 10 mg tablet 10 mg PO DAILY 01/24/24 04/02/24 levothyroxine 200 mcg tablet 200 mcg PO DAILY 01/24/24 04/02/24 metformin 500 mg tablet 500 mg PO BID 01/24/24 04/02/24 Previous Rx's ?Medication ?Instructions ?Recorded amoxicillin 875 mg-potassium 1 tab PO Q12H #20 tabs 04/02/24 clavulanate 125 mg tablet methylprednisolone 4 mg tablets in See Rx Instructions .Route 04/02/24 a dose pack (Medrol (Andrea)) .COMPLEX 6 days #21 tabs Allergies Allergy/AdvReac Type Severity Reaction Status Date / Time Sulfa (Sulfonamide Allergy Verified 07/10/23 12:50 Antibiotics) sulfamethoxazole Allergy Verified 07/10/23 12:57 [From Bactrim] trimethoprim [From Bactrim] Allergy Verified 07/10/23 12:57 Worker's Comp Is this a Worker's Comp case?: No [facility] Disclaimer: The information contained in this section may have been updated after the patient was seen, as this information can be updated by other users. Medical History (Updated 04/02/24 @ 18:36 by Debbie Llanes APRN) Cancer Depression Anxiety Thyroid disease Surgical History (Updated 02/17/24 @ 08:24 by Jennifer Pritchard RN) History of section History of thyroidectomy Social History (Updated 01/24/24 @ 09:27 by Chaparrita Tobias APRN) Smoking Status: Never smoker alcohol intake: never current occupational status: other Travel in the last 8 weeks: None ROS Obtained: Yes All systems reviewed & no additional complaints except as documented and Yes Systems reviewed as appropriate & no additional complaints except as documented Constitutional Constitutional: Reports system reviewed and no additional complaints, except as documented, Reports as per HPI, Reports body ache and Reports headache(s) ENT Ears, Nose, Mouth, and Throat: Reports system reviewed and no additional complaints, except as documented, Reports as per HPI, Reports otalgia, Reports headache(s), Reports sinus pain and Reports sinus pressure Cardiovascular Cardiovascular: Reports system reviewed and no additional complaints, except as documented and Reports as per HPI Respiratory Respiratory: Reports system reviewed and no additional complaints, except as documented and Reports as per HPI Gastrointestinal Gastrointestingal: Reports system reviewed and no additional complaints, except as documented and as per HPI Neurologic Neurologic: Reports headache(s) Physical Exam General General appearance: alert and in no apparent distress ENT ENT exam: Present mucous membranes moist Expanded ENT Exam TM/Canal exam: Bilateral TM: bulging Nose exam: Present sinus tenderness Throat exam: Present other (Pharyngeal erythema noted with PND) Respiratory Respiratory exam: Present normal lung sounds bilaterally; Absent respiratory distress or wheezes Cardiovascular Cardiovascular exam: Present regular rate, normal rhythm and normal heart sounds Neurological Exam Neurological exam: Present alert, oriented X3 and normal gait Medical Decision Making Ankur Inquiry Pt receiving controlled substance: No Ankur was queried for this patient: No Vital Signs: 04/02/24 18:10 Temperature 98.5 F Temperature Source Oral Pulse Rate [Left Brachial] 97 H Respiratory Rate 18 Blood Pressure [Left Arm] 142/78 H Blood Pressure Mean [Left Arm] 99 Blood Pressure Source [Left Arm] Automatic Cuff Blood Pressure Position [Left Arm] Sitting 02 Sat by Pulse Oximetry 100 Oxygen Delivery Method Room Air
[2024-04-02 18:43] VITALS: BP 142/78; PULSE 97; RESP 18; TEMP 36.9; O2SAT 100
== END 2024-04-02 18:48 | disposition home or self-care (01) ==
PROVIDERS: Emergency Provider Nurse Practitioner; PCP Pediatrics
DX: J01.90 Acute sinusitis, unspecified (principal); R05.9 Cough, unspecified; H92.01 Otalgia, right ear; R51.9 Headache, unspecified
CPT/HCPCS: 87635; 99212; 99214; G0463

== ENCOUNTER 2024-04-22 08:31 | Emergency (ER) | payer BC, SELFPAY ==
[2024-04-22 08:47] VITALS: BP 136/67; PULSE 91; RESP 18; TEMP 37; O2SAT 96; BMI 40.2
--- NOTE | 2024-04-22 08:54 | ED_ITS ---
Discharge Plan Disposition Patient Disposition: Home, Self-Care Condition: Good Prescriptions Prescriptions: New azithromycin [Zithromax Z-Andrea] 250 mg tablet See Rx Instructions .ROUTE .COMPLEX 5 Days Qty: 6 0RF Rx Instructions: For 250 mg dose pack: take 500 mg today (day 1), then 250 mg for 4 days (days 2-5) benzonatate 100 mg capsule 100 mg PO TID PRN (Reason: cough) Qty: 30 0RF methylprednisolone [Medrol (Andrea)] 4 mg tablets,dose pack See Rx Instructions .Route .COMPLEX 6 Days Qty: 21 0RF Rx Instructions: taper pack; guaifenesin [Mucinex] 600 mg tablet extended release 12hr 1,200 mg PO BID PRN (Reason: cough) Qty: 20 0RF No Action metformin 500 mg tablet 500 mg PO BID Patient Comments: TAKE 1 TABLET BY MOUTH TWICE DAILY FOR 90 DAYS levothyroxine 200 mcg tablet 200 mcg PO DAILY Patient Comments: TAKE 1 TABLET BY MOUTH ONCE DAILY escitalopram oxalate 10 mg tablet 10 mg PO DAILY Patient Comments: TAKE 1 TABLET BY MOUTH ONCE DAILY FOR 90 DAYS . APPOINTMENT REQUIRED FOR FUTURE REFILLS calcium carbonate [Calcium 600] 600 mg calcium (1,500 mg) Tablet 1,200 mg PO DAILY Referrals Follow up/Referrals: Ramesh Sosa MD [Primary Care Provider] - See instructions Activity Restrictions/Add. Instructions Additional Instructions/Restrictions: * Start antibiotic today. Be sure to complete entire prescription even if feeling better * Monitor temp. Tylenol every 4 hours as needed and / or ibuprofen every 6 hours as needed ( As long as your primary care physician has told you that it ok to take both. For fever/aches/pains ER if no less than 101 despite Tylenol or Motrin * Humidifier/vaporizer or hot steamy shower * Mucinex during the day for your cough and cough suppressant only at night. Be sure to drink lots of water. Insurance may not cover a prescriptions for mucinex. Might be cheaper to get 400mg tablets and take 2 tablet in the morning, mid-day and evening with lots of water. Tessalon Perles will not cause drowsiness but use at bedtime to help stop cough so that you may get some rest. *Start steroid today. Helps with inflammation therefore, cough and wheezing. Follow directions on the package. Reviewed side effects. Patient reports taking them before. Follow up IMMEDIATELY for new or worsening of symptoms OR no noticeable im provement over the next 48-72 hours. 911 immediately for any life threatening symptoms such as chest pain or difficulty breathing Clinical Impressions Clinical Impression: Sinusitis, Bronchitis Instructions Patient Instructions: DI for Sinusitis, Sinusitis Print Language Print Language: Panamanian Discharge ED Provider: [place]bbie Llanes [facility] [place] General Stated complaint: cough sore throat Time Seen by Provider: 04/22/24 08:54 History of Present Illness Provider Complaint: Patient states that she has been having cough, sore throat, sinus congestion and pressure for over a week States at times she is coughing up mucous and others she is not States today her cough was worse so she came in to get checked Related Data Home Medications ?Medication ?Instructions ?Recorded ?Confirmed escitalopram oxalate 10 mg tablet 10 mg PO DAILY 01/24/24 04/22/24 levothyroxine 200 mcg tablet 200 mcg PO DAILY 01/24/24 04/22/24 metformin 500 mg tablet 500 mg PO BID 01/24/24 04/22/24 calcium carbonate (Calcium 600) 1,200 mg PO DAILY 04/22/24 04/22/24 Previous Rx's ?Medication ?Instructions ?Recorded azithromycin 250 mg tablet See Rx Instructions PO .COMPLEX 5 04/22/24 (Zithromax Z-Andrea) days #6 tabs benzonatate 100 mg capsule 100 mg PO TID PRN cough #30 caps 04/22/24 guaifenesin 600 mg tablet, 1,200 mg (2 x 600 mg) PO BID PRN 04/22/24 extended release 12 hr (Mucinex) cough #20 tabs methylprednisolone 4 mg tablets in See Rx Instructions .Route 04/22/24 a dose pack (Medrol (Andrea)) .COMPLEX 6 days #21 tabs Allergies Allergy/AdvReac Type Severity Reaction Status Date / Time Sulfa (Sulfonamide Allergy Verified 07/10/23 12:50 Antibiotics) sulfamethoxazole Allergy Verified 07/10/23 12:57 [From Bactrim] trimethoprim [From Bactrim] Allergy Verified 07/10/23 12:57 [facility] Disclaimer: The information contained in this section may have been updated after the patient was seen, as this information can be updated by other users. Medical History (Updated 04/22/24 @ 09:06 by Debbie Llanes APRN) Cancer Depression Anxiety Thyroid disease Surgical History (Updated 04/22/24 @ 08:59 by Mali Birmingham RN) History of tubal ligation History of section History of thyroidectomy Social History (Updated 01/24/24 @ 09:27 by Chaparrita Tobias APRN) Smoking Status: Never smoker alcohol intake: never current occupational status: other Travel in the last 8 weeks: None ROS Obtained: Yes All systems reviewed & no additional complaints except as documented and Yes Systems reviewed as appropriate & no additional complaints except as documented Constitutional Constitutional: Reports system reviewed and no additional complaints, except as documented and Reports as per HPI ENT Ears, Nose, Mouth, and Throat: Reports system reviewed and no additional complaints, except as documented, Reports as per HPI, Reports sinus pain, Reports sinus pressure and Reports sore throat Cardiovascular Cardiovascular: Reports system reviewed and no additional complaints, except as documented and Reports as per HPI Respiratory Respiratory: Reports system reviewed and no additional complaints, except as documented, Reports as per HPI and Reports cough Gastrointestinal Gastrointestingal: Reports system reviewed and no additional complaints, except as documented and as per HPI Physical Exam General General appearance: alert and in no apparent distress ENT ENT exam: Present mucous membranes moist Expanded ENT Exam Nose exam: Present sinus tenderness Throat exam: Present other (Pharyngeal erythema noted with PND) Respiratory Respiratory exam: Present normal lung sounds bilaterally; Absent respiratory distress or wheezes Cardiovascular Cardiovascular exam: Present regular rate, normal rhythm and normal heart sounds Neurological Exam Neurological exam: Present alert, oriented X3 and normal gait Medical Decision Making Ankur Inquiry Pt receiving controlled substance: No Ankur was queried for this patient: No Medical Decision Narrative: Patient states that she has taken Medrol and Azithromycin in the past without complications or reactions
[2024-04-22 08:58] LABS: UTC Strep Screen (Rapid) Negative (Negative)
[2024-04-22 09:09] VITALS: BP 136/67; PULSE 91; RESP 18; TEMP 37; O2SAT 96
== END 2024-04-22 09:13 | disposition home or self-care (01) ==
PROVIDERS: Emergency Provider Nurse Practitioner; PCP Pediatrics
DX: J20.9 Acute bronchitis, unspecified (principal); J01.90 Acute sinusitis, unspecified; R07.0 Pain in throat; R05.9 Cough, unspecified
CPT/HCPCS: 87880; 99212; 99214; G0463

== ENCOUNTER 2025-07-28 19:32 | Outpatient (CLI) | payer BC, SELFPAY ==
--- OUTSIDE RECORDS SUMMARY | 2020-12-07 13:31 | XMS_ITS | Encounter Summary ---
Author Organization [facility] Address [address] [place] [address] Care Team Providers Care Internal Controls Specialist Name Role Phone Shira Gaviria MD Primary Care Provider Reason for Visit * Diagnostic Imaging (Routine) - Closed Specialty Diagnoses / Procedures Referred By Contstefania parker Referred To Contact Radiology Diagnoses Papillary thyroid carcinoma Procedures Thyroid Chaitanya Snyder MD [address] [address] Phone: tel: fax: [facility] [address] [address] Phone: tel: fax: Referral ID Status Reason Start Date Expiration Date Visits Re quested Visits Authorized [id number] Closed 12/07/2020 12/07/2021 1 1 Encounter Details Date Type Department Care Team (Late st Contact Info) Description 12/07/2020 2:31 PM EDT Hospital Encounter [facility] [address] [address] Social History Tobacco Use Types Packs/Day Years Used Date Smoking Tobacco: Never Passive Smoke Exposure: Never Smokeless Tobacco: Never Alcohol Use Standard Drinks/Week Comments Yes 0 (1 standard drink = 0.6 oz pur e alcohol) 2 a month Comments Unknown Sex and Gender Information Value Date Recorded Sex Assigned at Female 05/04/2023 11:55 AM EDT Legal Sex Female 1:44 PM EDT Gender Identity Female 05/04/2023 11:55 AM EDT Sexual Orientation Not on file documented as of this encounter Plan of Treatment Upcoming Encounters Date Type Department Care Team (Late st Contact Info) Description 11/11/2025 10:45 AM EDT Office Visit [facility] [address] [facility] [address] [place] [address] Chaitanya Snyder MD [address] [facility] [place] [address] documented as of this encounter Procedures Procedure Name Priority Date/Time Associated Diagnosis Comments US THYROID Routine 12/07/2020 2:31 PM EDT Papillary thyroid carcinoma documented in this encounter Results * US Thyroid (12/07/2020 2:31 PM EDT) Narrative SYSTEMGENERATED, DOCUMENTATION - 12/07/2020 2:31 PM EDT Please see performing physician's note for result. Chaitanya Snyder MD [facility] [place] ORDERABLES Final R esult documented in this encounter Visit Diagnoses Not on filedocumented in this encounter Care Teams Internal Controls Specialist Relationship Specialty Start Date End Date Shira Gaviria MD PCP - General Internal Medicine 05/27/20 01/16/23 documented as of this encounter
--- OUTSIDE RECORDS SUMMARY | 2022-01-24 14:53 | XMS_ITS | Encounter Summary ---
[facility] Organization [facility] Address [address] [place] [address] Care Team Providers Care Supervisor Cell Room Name Role Phone Shira Gaviria MD Primary Care Provider [phone] Reason for Visit * Diagnostic Imaging (Routine) - Closed Specialty Diagnoses / Procedures Referred By Contstefania parker Referred To Contact Radiology Diagnoses Papillary thyroid carcinoma Procedures Thyroid Chaitanya Snyder MD [address] [address] Phone: tel: fax: [facility] [address] [address] Phone: tel: fax: Referral ID Status Reason Start Date Expiration Date Visits Re quested Visits Authorized [id number] Closed 01/24/2022 01/24/2023 1 1 Encounter Details Date Type Department Care Team (Late st Contact Info) Description 01/24/2022 3:53 PM EDT Hospital Encounter [facility] [address] [address] Social History Tobacco Use Types [...] Description 11/11/2025 10:45 AM EDT Office Visit [facility] [address] [facility] [address] [place] [address] Chaitanya Snyder MD [address] [facility] [place] [address] documented as of this encounter Procedures Procedure Name Priority Date/Time Associated Diagnosis Comments US THYROID Routine 01/24/2022 3:53 PM EDT Papillary thyroid carcinoma documented in this encounter Results * US Thyroid (01/24/2022 3:53 PM EDT) Narrative SYSTEMGENERATED, DOCUMENTATION - 01/24/2022 3:53 PM EDT Please see performing physician's note for result. Chaitanya Snyder MD [facility] [place] US ORDERABLES Final R esult documented in this encounter Visit Diagnoses Not on filedocumented in this encounter Care Teams Supervisor Cell Room Relationship Specialty Start Date End Date Shira Gaviria MD PCP - General Internal Medicine 05/27/20 01/16/23 documented as of this encounter
--- OUTSIDE RECORDS SUMMARY | 2023-06-21 12:11 | XMS_ITS | Encounter Summary ---
Author Organization [facility] Address [address] [place] [address] Care Team Providers Care Livestock Counter Name Role Phone Ramesh Sosa MD Primary Care Provider Reason for Visit * Diagnostic Imaging (Routine) - Closed Specialty Diagnoses / Procedures Referred By Contac elena Referred To Contact Radiology Diagnoses Papillary thyroid carcinoma Procedures US Thyroid Chaitanya Snyder MD [address] [address] Phone: tel: fax: Referral ID Status Reason Start Date Expiration Date Visits Re quested Visits Authorized [id number] Closed 06/21/2023 06/20/2024 1 1 Encounter Details Date Type Department Care Team (Late st Contact Info) Description 06/21/2023 12:11 PM EST Hospital Encounter [facility] [address] [facility] [address] [place] [address] Social History Tobacco Use Types Packs/Day [...] Description 11/11/2025 10:45 AM EDT Office Visit [facility] [address] [address] Chaitanya Snyder MD [address] [address] documented as of this encounter Procedures Procedure Name Priority Date/Time Associated Diagnosis Comments US THYROID Routine 06/21/2023 12:11 PM EST Papillary thyroid carcinoma documented in this encounter Results * US Thyroid (06/21/2023 12:11 PM EST) Narrative SYSTEMGENERATED, DOCUMENTATION - 06/21/2023 12:11 PM EST Please see performing physician's note for result. Chaitanya Snyder MD [facility] [place] ORDERABLES Final R esult documented in this encounter Visit Diagnoses Not on filedocumented in this encounter Care Teams Livestock Counter Relationship Specialty Start Date End Date Ramesh Sosa MD [address] [place] [address] PCP - General Internal Medicine 06/21/23 documented as of this encounter
[2025-07-28 21:13] LABS: Coronavirus 19, PCR Not Detected (NotDetected); Influenza A, PCR Not Detected (NotDetected); Influenza B, PCR Not Detected (NotDetected)
--- OUTSIDE RECORDS SUMMARY | 2025-07-29 18:53 | XMS_ITS | Clinical Summary ---
Author Organization [facility] Address [address] [place] [address] Care Team Providers Care Straddle Truck Driver Name Role Phone Ramesh Sosa MD Primary Care Provider Allergies Active Allergy Reactions Criticality Noted Date Comments Amoxicillin Rash Low 04/15/2019 Sulfa Antibiotics Rash Low 05/27/2020 Medications hydrOXYzine pamoate (VISTARIL) 25 MG capsule hydroxyzine pamoate 25 mg capsule Active calcium carbonate (OS-KELLEE) 600 MG tablet Take 1 tablet by mouth Daily. Active escitalopram (LEXAPRO) 10 MG tablet Take 1 tablet by mouth Daily. 3 Active calcitriol (ROCALTROL) 0.5 MCG capsule Take 2 capsules by mouth Daily. 180 capsule 3 5 Active Zepbound 2.5 MG/0.5ML solution auto-injector Inject 0.5 mL under the skin into the appropriate area as directed 1 (One) Time Per Week. Active Inositol 500 MG capsule Take 500 mg by mouth 4 (Four) Times a Day. Active levothyroxine (SYNTHROID, LEVOTHROID) 125 MCG tablet Take 2 tablets by mouth Daily. 180 tablet 3 5 Active Active Problems Problem Noted Date Diagnosed Date Papillary thyroid carcinoma 05/27/2020 Assessment & Plan (03/10/2025 2:13 PM EDT): Plan for TG and neck u/s in about 6 months. Assessment & Plan (09/02/2024 9:22 AM EST): Plan for TG and neck u/s in a year. Assessment & Plan (06/21/2023 12:15 PM EST): Check TG. A neck u/s was performed today. This revealed clear thyroid bed with no masses. No abnormal lymph nodes were seen. Assessment & Plan (07/28/2022 3:08 PM EST): Plan for TG and neck u/s in 6 months. Assessment & Plan (01/24/2022 3:48 PM EDT): Check TG. A neck u/s was performed today. This revealed clear thyroid bed with no masses. No abnormal lymph nodes were seen. Assessment & Plan (04/21/2021 3:26 PM EDT): Plan for TG and neck u/s next spring. Assessment & Plan (12/07/2020 2:40 PM EDT): Check TG today. A neck u/s was performed today. This revealed clear thyroid bed with no masses. No abnormal lymph nodes were seen. Assessment & Plan (05/27/2020 9:30 AM EDT): Plan for neck u/s and TG next visit. Postoperative hypothyroidism 05/27/2020 Assessment & Plan (03/10/2025 2:13 PM EDT): Continue levothyroxine. Check TSH. Assessment & Plan (09/02/2024 9:24 AM EST): Continue levothyroxine. Check TFTs today. Assessment & Plan (06/21/2023 12:09 PM EST): Continue T4 tx. Check TSH. Assessment & Plan (07/28/2022 3:08 PM EST): Continue T4. Check TFTs. Assessment & Plan (01/24/2022 3:47 PM EDT): Continue T4. Check TSH today. Assessment & Plan (04/21/2021 3:25 PM EDT): Continue T4. Check TSH today. Assessment & Plan (12/07/2020 2:30 PM EDT): Continue T4. Check TFTs today. Assessment & Plan (05/27/2020 9:30 AM EDT): Check TSH and free T4 today. Will send note about results. Hypocalcemia 05/27/2020 Assessment & Plan (03/10/2025 2:13 PM EDT): Check serum calcium. Continue calcitriol. Assessment & Plan (09/02/2024 9:23 AM EST): Continue calcitriol. Check calcium today. Assessment & Plan (06/21/2023 12:09 PM EST): Continue calcitriol. Check calcium level. Assessment & Plan (07/28/2022 3:08 PM EST): Continue calcitriol and calcium supplement. Check calcium today. Assessment & Plan (01/24/2022 3:47 PM EDT): Continue calcitriol. Check calcium today. Assessment & Plan (04/21/2021 3:25 PM EDT): Check calcium today. Continue rocaltrol and calcium supplementation. Assessment & Plan (12/07/2020 2:30 PM EDT): Continue rocaltrol and calcium. Check labs today. Assessment & Plan (05/27/2020 9:30 AM EDT): Check CMP next visit. Encounters Date Type Department Care Team Description 05/01/2025 Telephone [facility] [address] [place] [address] Chaitanya Snyder MD from Last 3 Months Family History Medical History Relation Name Comments Diabetes Brother Arthritis Father Brian rocha Bipolar disorder Father Brian rocha Diabetes Father Brian rocha Arthritis Mother Janet rocha Hypothyroidism Mother Janet rocha Thyroid disease Mother Janet rocha Alzheimer's disease Paternal Grandmother Relation Name Status Comments Brother Father Brian rocha Alive Mother Janet rocha Alive Paternal Grandmother Social History Tobacco Use Types Packs/Day Years Used Date Smoking Tobacco: Never Passive Smoke Exposure: Never Smokeless Tobacco: Never Tobacco Cessation:Counseling Given: No Alcohol Use Standard Drinks/Week Comments Yes 0 (1 standard drink = 0.6 oz pur e alcohol) 2 a month Comments Unknown Sex and Gender Information Value Date Recorded Sex Assigned at Female 05/04/2023 11:55 AM EDT Legal Sex Female 1:44 PM EDT Gender Identity Female 05/04/2023 11:55 AM EDT Sexual Orientation Not on file Last Filed Vital Signs Vital Sign Reading Time Taken Comments Blood Pressure 140/100 03/10/2025 2:11 PM EDT Pulse 99 03/10/2025 2:11 PM EDT Temperature 36.8 C (98.2 F) 12/07/2020 2:10 PM EDT Respiratory Rate 20 06/21/2023 11:35 AM EST Oxygen Saturation 100% 03/10/2025 2:11 PM EDT Inhaled Oxygen Concentration - - Weight 102 kg (225 lb) 03/10/2025 2:11 PM EDT Height 157.5 cm (5' 2.01 ) 03/10/2025 2:11 PM ED T Body Mass Index 41.14 03/10/2025 2:11 PM EDT Plan of Treatment Upcoming Encounters Date Type Department Care Team (Late st Contact Info) Description 11/11/2025 10:45 AM EDT Office Visit [facility] [address] [facility] [address] [place] [address] Chaitanya Snyder MD [address] [facility] [address] [place] [address] Health Maintenance Due Date Last Done Comments Annual Gynecologic Pelvic an d Breast Exam 1990 PAP SMEAR 2011 ANNUAL PHYSICAL 05/26/2020 HEPATITIS C SCREENING 05/26/2020 INFLUENZA VACCINE 03/13/2025 05/02/2024, 04/12/2023, 07/17/2022 TDAP/TD VACCINES (2 - Td or Tdap) 11/17/2031 11/16/2021 Pneumococcal Vaccine 0-49 Aged Out No longer eligible based on patient's age to complete this topic Insurance [employer] PPO Member Subscriber Plan / Payer ( fective 2016-Present) Name:Ivana Fowler Relation to Subscriber:Spouse Name:EMILY FOWLER Date of :1988 (Home) Address: [address] [place] [address] Payer ID:[id number] (NAIC) Type:Not on file Address: [address] [employer] P[employer] Care Teams Straddle Truck Driver Relationship Specialty Start Date End Date Ramesh Sosa MD [address] [facility] [address] [place] [address] PCP - General Internal Medicine 06/21/23
--- OUTSIDE RECORDS SUMMARY | 2025-07-29 18:53 | XMS_ITS | Encounter Summary ---
Author Organization [facility] Address [address] [id number] Care Team Providers Care Lead Network Architect Name Role Phone Unavailable Primary Care Provider Unavailabl e Encounter Details Date Type Department Care Team (Late st Contact Info) Description 01/25/2022 Lab Requisition [facility] [address] [place] [address] Chaitanya Snyder MD [address] [place] [address] Encounter for general adult medical examination without abnormal findings Social History Tobacco Use Types Packs/Day Years Used Date Smoking Tobacco: Never Assessed Comments Unknown Sex and Gender Information Value Date Recorded Sex Assigned at Not on file Legal Sex Female 6:45 PM EDT Gender Identity Not on file Sexual Orientation Not on file documented as of this encounter Plan of Treatment Not on file documented as of this encounter Procedures Procedure Name Priority Date/Time Associated Diagnosis Comments THYROGLOBULIN (INHOUSE- REFLEX ONLY) Routine 01/24/2022 4:13 PM EDT Encounter for general adult medical examination without abnormal findings THYROGLOBULIN ANTIBODY Routine 4:13 PM EDT Encounter for general adult medical examination without abnormal findings documented in this encounter Results * Thyroglobulin (InHouse) (01/24/2022 4:13 PM EDT) Thyroglobulin (Inhouse) 0.4 <=34.0 ng/mL 01/25/2022 12:00 PM EDT [facility] Blood Venous blood specimen / Unknown 01/24/2022 4:13 PM EDT 01/25/2022 9:50 AM EDT Narrative [facility] - 01/25/2022 12:00 PM EDT Thyroglobulin measured by 2nd generation immunoassay. Thyroglobulin antibodies may interfere with thyroglobulin measurements. Consider ordering Thyroglobulin measurement by LC/MS/MS if TG antibody concentrations are elevated. us Chaitanya Snyder MD LAB BLOOD ORDERABLES Final Re sult Performing Organization Address City/[facility] Co de Phone Number [facility]ALTHCARE [facility] [address] [place] [address] * Thyroglobulin Antibody (01/24/2022 4:13 PM EDT) Thyroglobulin Antibody <1.0 <4.0 IU/mL 01/25/2022 12:00 PM EDT [facility] Blood Venous blood specimen / Unknown 01/24/2022 4:13 PM EDT 01/25/2022 9:50 AM EDT us Chaitanya Snyder MD LAB BLOOD ORDERABLES Final Re sult Performing Organization Address [facility] [place]/[facility] Co de Phone Number HEALTHCARE [facility] [address] [place] [address] documented in this encounter Visit Diagnoses Diagnosis Encounter for general adult medical examination without abnormal findings documented in this encounter
--- OUTSIDE RECORDS SUMMARY | 2025-07-29 18:53 | XMS_ITS | Encounter Summary ---
Author Organization [facility] Address [address] [place] [address] Care Team Providers Care Sales Agent Insurance Name Role Phone Ramesh Sosa MD Primary Care Provider Encounter Details Date Type Department Care Team (Late st Contact Info) Description 05/01/2025 Telephone [facility] [address] [address] Chaitanya Snyder MD [address] [address] Social History Tobacco Use Types Packs/Day Years [...] on file documented as of this encounter Miscellaneous Notes * Telephone Encounter - Cintia Keller MA - 05/01/2025 10:56 AM EDT Called and spoke with patient. She is going to contact PCP as we have not seen for hypoglycemia. Wero for thyroid. She ordered a CGM online and is going to contact them with readings. * Telephone Encounter - Mine Sharma RegSched Rep - 05/01/2025 10:51 AM EDT Hub staff attempted to follow warm transfer process and was unsuccessful Caller: IVANA FOWLER Relationship to patient: SELF Best call back number: [phone] Patient is needing: PATIENTS BLOOD SUGARS HAVE BEEN RUNNING REAL LOW, DROPS BELOW 55. SHE WOULD LIKE TO SPEAK TO THE NURSE OR SOMEONE IN CLINICAL. PLEASE ADVISE documented in this encounter Plan of Treatment Upcoming Encounters Date Type Department Care Team (Late st Contact Info) Description 11/11/2025 10:45 AM EDT Office Visit [facility] [address] [address] Chaitanya Snyder MD [address] [id number] documented as of this encounter Visit Diagnoses Not on filedocumented in this encounter Care Teams Sales Agent Insurance Relationship Specialty Start Date End Date Ramesh Sosa MD [address] [place] [address] PCP - General Internal Medicine 06/21/23 documented as of this encounter
--- OUTSIDE RECORDS SUMMARY | 2025-07-29 18:53 | XMS_ITS | Clinical Summary ---
Author Organization [facility] Address [address] [place] [address] Care Team Providers Care Job Coaching Name Role Phone Unavailable Primary Care Provider Unavailabl e Allergies Active Allergy Reactions Criticality Noted Date Comments Amoxicillin Rash Low 04/15/2019 Sulfa Drugs Rash Low 05/27/2020 Immunizations Immunization Administration Dates Next Due Influenza, injectable, MDCK, preservative free, quadrivalent 07/17/2022 Influenza, injectable, quadrivalent, preservativ e free 04/12/2023 Influenza, seasonal, injectable, preservative fr ee 05/02/2024 Tdap 11/16/2021 Social History Tobacco Use Types Packs/Day Years Used Date Smoking Tobacco: Never Assessed Comments Unknown Sex and Gender Information Value Date Recorded Sex Assigned at Not on file Legal Sex Female 6:45 PM EDT Gender Identity Not on file Sexual Orientation Not on file Plan of Treatment Health Maintenance Due Date Last Done Comments [facility]-Depression Screening 1990 [facility]-HIV Screening 1990 [facility]-Hepatitis C Screening 1990 [facility]-Infant/Child/Adol SDOH Screenings 1990 [facility]-Varicella Vaccines (1 of 2 - 13+ 2-dose series) 2003 [facility]- SDOH Screenings 2008 [facility]-Adult SDOH Screenings 2008 [facility]-Hepatitis B Vaccines (1 of 3 - 19+ 3-dose series) 2009 [facility]-Pap Smear 2011 [facility]-Cervical Cancer Screening 2020 [facility]-HPV/Cotest 2020 [facility]-PPPRW-10 Vaccine ( season) 2025 [facility]-Influenza Vaccine (#1) 04/13/202505/02, 04/12/2023, 07/17/2022 [facility]-DTaP,Tdap,and Td Vaccines (2 - Td or Tdap) 11/17/2031 11/16/2021 [facility]-Zoster Vaccines (1 of 2) 2040 HPV Vaccines (No Doses Required) Completed [facility]-HIB Vaccines Aged Out No longer e ligible based on patient's age to complete this topic [facility]-Hepatitis A Vaccines Aged Out No longer eligible based on patient's age to complete this topic [facility]-IPV Vaccines Aged Out No longer e ligible based on patient's age to complete this topic [facility]-Pneumococcal Vaccine: Pediatrics (0 to 5 Years) and At-Risk Patients (6 to 49 Years) Aged Out No longer eligible b ased on patient's age to complete this topic [facility]-Rotavirus Vaccines Aged Out No lo nger eligible based on patient's age to complete this topic
== END 2025-07-28 23:59 | disposition home or self-care (01) ==
LOC: LAB.DROPOF 07-29 18:51
PROVIDERS: PCP Pediatrics; Visit Provider Nurse Practitioner
DX: J06.9 Acute upper respiratory infection, unspecified (principal)
CPT/HCPCS: 87631